=== PATIENT | male | born 1960 | race African-American/Black ===

== ENCOUNTER 2020-04-06 16:30 | Emergency (ER) | payer MEDICAID ==
[~2020-04-06] VITALS: Ht 172.7 cm; Wt 68.0 kg
[2020-04-06] MEDS ORDERED: HIV (16:42)
[2020-04-06] MEDS ORDERED: KEFLEX500 M1 PO (17:18)
[2020-04-06 19:08] LABS: HEMATOCRIT 30.5 % (42.0-52.0); HEMOGLOBIN 10.4 gm/dL (14.0-18.0); MCH 30.7 pg (26.0-34.0); MCV 90.3 fL (80.0-100.0); MPV 8.3 fl. (7.2-11.1); NUCLEATED RBCS 0 /100WBC; PLATELET COUNT* 233 thou/uL (150-400); RBC 3.38 mil/uL (4.50-6.00); RDW-CV 17.2 % (10.5-14.5); WBC 5.2 thou/uL (4.0-11.0)
[2020-04-06 19:17] LABS: APTT 24.8 Seconds (25.0-31.3); CALCIUM 8.3 mg/dL (8.5-10.1); CREATININE 2.1 mg/dL (0.6-1.3); POTASSIUM 3.6 mmol/L (3.5-5.1); PROTIME 10.7 Seconds (9.20-11.50)
[2020-04-06 19:27] LABS: ALBUMIN 3.5 g/dL (3.4-5.0); TOTAL BILIRUBIN 0.3 mg/dL (<0.1-1.0); TOTAL PROTEIN 8.3 g/dL (6.4-8.2)
[2020-04-06 19:34] LABS: ABSOLUTE BASOPHILS 0.2 thou/uL (0.0-0.2); ABSOLUTE EOSINOPHILS 0.6 thou/uL (0.0-0.7); ABSOLUTE LYMPHOCYTES 1.2 thou/uL (0.8-5.3); ABSOLUTE MONOCYTES 0.2 thou/uL (0.0-1.2); ATYPICAL LYMPHS 2 %; PLATELET ESTIMATE ADEQUATE
[2020-04-06 19:35] LABS: HYPOCHROMASIA 2+
[2020-04-06 21:02] VITALS: BP 154/97
== END 2020-04-06 21:02 | disposition home or self-care (01) ==
LOC: M.ERS 16:30
PROVIDERS: Physician Assistant
DX: S51.812A Laceration without foreign body of left forearm, initial encounter (principal); R79.89 Other specified abnormal findings of blood chemistry; W26.0XXA Contact with knife, initial encounter; Y93.89 Activity, other specified; Y92.89 Other specified places as the place of occurrence of the external cause; Y99.8 Other external cause status